=== PATIENT | male | born 1990 | race African-American/Black ===

== ENCOUNTER 2021-01-09 21:10 | Emergency (ER) | payer SELFPAY ==
--- NOTE | ~2021-01-09 | XR_ITS ---
XR ankle LT min 3V DATE: 01/09/2021 21:29 INDICATION: Rolled ankle. Swelling. [place] a pop. TECHNIQUE: 4 views COMPARISON: None FINDINGS: There is a linear nondisplaced intra-articular fracture of the lateral base of the fifth me tatarsal bone. There is soft tissue swelling, greater laterally. No fracture or dislocation of the ankle or disruption of the ankle mortise is detected. IMPRESSION: Soft tissue swelling, greatest laterally Intra-articular fracture of lateral base of fifth metatarsal bone Reviewed, dictated and finalized at location A.
[2021-01-09 21:08] VITALS: BP 142/80; PULSE 97; RESP 17; TEMP 36.3; O2SAT 98
--- NOTE | 2021-01-09 21:20 | PC.NURSE ---
ice bag applied to ankle.
--- NOTE | 2021-01-09 21:27 | ED.LOWEXIN ---
HPI - Extremity Injury (Lower) General Chief Complaint: Extremity Injury, Lower Stated Complaint: ankle pain Time Seen by Provider: 01/09/21 21:17 Source: patient and RN notes reviewed Mode of arrival: ambulatory Limitations: no limitations History of Present Illness HPI Narrative: Patient is 24 years old -[place] female presents with twisted left ankle while walking prior to arrival to the emergency room. Patient denies other injuries. 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 Review of Systems Review of Systems: Narrative: CONSTITUTIONAL: Denies fever, chills, or sweats. EYES: Denies visual changes, redness, or discharge. ENT: Denies rhinorrhea, congestion, sore throat, or otalgia. CARDIOVASCULAR: Denies chest pain, palpitations, or edema. RESPIRATORY: Denies cough or dyspnea. GASTROINTESTINAL: Denies abdominal pain, nausea, vomiting, or diarrhea. GENITOURINARY: Denies dysuria or hematuria. SKIN: Denies rash or itching. MUSCULOSKELETAL: Left ankle pain NEUROLOGIC: Denies headache, numbness, or weakness. PSYCHIATRIC: Denies anxiety or depression. PMFSH Social History Social History Gender identity (if verbalized by the patient): Male Exam Narrative: Exam Narrative: General appearance: Well-developed, well-nourished Skin: Normal color Head: Normocephalic, nontraumatic Chest and respiratory: Airway patent, no respiratory distress, no accessory muscle use Heart: Regular rate/rhythm Abdomen: Soft, nontender, no organomegaly, quiet bowel sounds Vascular: Normal peripheral pulses, normal capillary refill. Musculoskeletal: Moderate tenderness left ankle laterally, no bruises, no swelling, no deformity Neurologic: Alert and oriented ?3, BIOLOGICAL ENGINEER is normal as tested, no gross motor deficit Course Course Emergency Course: Stable Vital Signs Vital signs: Vital Signs Temperature 36.3 C L 01/09/21 21:08 Pulse Rate 97 01/09/21 21:08 Respiratory Rate 17 01/09/21 21:08 Blood Pressure 142/80 H 01/09/21 21:08 Pulse Oximetry 98 01/09/21 21:08 Temperature 36.3 C L 01/09/21 21:08 Pulse Rate 97 01/09/21 21:08 Respiratory Rate 17 01/09/21 21:08 Blood Pressure 142/80 H 01/09/21 21:08 Pulse Oximetry 98 01/09/21 21:08 MDM - Extremity Injury (Lower) MDM Narrative Medical decision making narrative: Patient presents with left ankle sprain. X-ray ordered. Further plan to follow Critical Care Time Critical Care Time Critical Care Time: No Discharge Plan Discharge Clinical Impression: Ankle sprain and strain Patient Disposition: Home, Self-Care Condition: Stable Additional Instructions: Return if symptoms are worsening , call your family physician for appointment, take Tylenol as as needed for aches and pain, continue home medications. Do not put weight on the left foot. Use crutches, keep foot elevated
[2021-01-09] MEDS: ACETAMINOPHEN 325 MG TABLET 650 MG PO (22:13)
[2021-01-09] MEDS: IBUPROFEN 600 MG TABLET PO (22:14)
[2021-01-09 22:21] VITALS: BP 140/78; PULSE 90; RESP 16; O2SAT 99
== END 2021-01-09 22:46 | disposition home or self-care (01) ==
LOC: ANHED 22:34
PROVIDERS: Emergency Provider Emergency Medicine
DX: S93.402A Sprain of unspecified ligament of left ankle, initial encounter (principal); S96.912A Strain of unspecified muscle and tendon at ankle and foot level, left foot, initial encounter; X50.9XXA Other and unspecified overexertion or strenuous movements or postures, initial encounter
CPT/HCPCS: 73610; 99283; A9270